=== PATIENT | male | born 1990 | race Caucasian/White ===

== ENCOUNTER 2016-12-20 15:37 | Emergency (ER) | payer SELFPAY ==
[~2016-12-20] VITALS: Ht 170.2 cm; Wt 68.0 kg
[2016-12-20 15:45] VITALS: BP_SYST 128
--- NOTE | 2016-12-20 15:50 | NUR ---
Patient to ER bed 07 to gown for evaluation. Side rails up. Report given to Olivia
--- NOTE | 2016-12-20 15:50 | NUR ---
Patient to ER bed 7 to gown for evaluation. Side rails up. Report given to Mike HERNANDEZ.
--- NOTE | 2016-12-20 15:57 | NUR ---
Patient to ED for eval of right facial swelling/pain-patient awake alert and oriented-handling secretions well. Awaiting eval by ER MD-will continue to observe and assess.
[2016-12-20] MEDS ORDERED: LIDOCAINE MPF 1% 50 MG/5 ML AMP INJ ONE (16:00)
--- NOTE | 2016-12-20 16:10 | NUR ---
Dr Murphy at bedside to eval and I&D patient. Orders received and implemented
[2016-12-20] MEDS ORDERED: LIDOCAINE 1%, 20 ML MDV 20 ML ONE (16:16)
[2016-12-20 16:25] VITALS: BP_SYST 120
--- NOTE | 2016-12-20 16:28 | NUR ---
Patient given written and verbal discharge instructions and verbalizes understanding. ER MD discussed with patient the results and treatment provided. Patient in stable condition. ID arm band removed. Rx of [place], PEN VK given. Patient educated on pain management and to follow up with PMD. Pain Scale 5. Opportunity for questions provided and answered.
== END 2016-12-20 16:15 | disposition home or self-care (01) ==
LOC: SED 15:37
DX: K04.7 Periapical abscess without sinus (principal)
CPT/HCPCS: 41800; 99284; J2001 ×2